=== PATIENT | female | born 1980 | race African-American/Black ===

== ENCOUNTER 2021-05-25 17:11 | Emergency (ER) | payer OTHER ==
[2021-05-25 17:17] VITALS: BP 131/82; PULSE 86; TEMP 97.4; BMI 31.9
[2021-05-25] MEDS ORDERED: diazePAM 5 MG TABLET PO ONE (17:53)
[2021-05-25] MEDS ORDERED: DIPHTH,PERTUSS(ACELL),TET 0.5 ML DISP.SYRIN IM ONE ×2 (17:53→17:56)
[2021-05-25] MEDS ORDERED: KETOROLAC TROMETHAMINE 30 MG/1 ML VIAL IM ONE (17:53)
[2021-05-25] MEDS ORDERED: KETOROLAC TROMETHAMINE 30 MG/1 ML VIAL ONE (17:55)
[2021-05-25] MEDS ORDERED: diazePAM 5 MG TABLET ONE (17:56)
== END 2021-05-25 18:39 | disposition home or self-care (01) ==
LOC: JERFT 17:11
PROC: 3E0234Z Introduction of Serum, Toxoid and Vaccine into Muscle, Percutaneous Approach (ICD-10-PCS; principal; 2021-05-25)
PROC: 3E0233Z Introduction of Anti-inflammatory into Muscle, Percutaneous Approach (ICD-10-PCS; 2021-05-25)
DX: M54.2 Cervicalgia (principal); M54.50 Low back pain, unspecified; W10.9XXA Fall (on) (from) unspecified stairs and steps, initial encounter
CPT/HCPCS: 72220-TC-FY; 90715; 99284-25